=== PATIENT | female | born 1935 | race Caucasian/White ===

== ENCOUNTER 2023-01-28 18:18 | Emergency (ER) | payer OTHER ==
[~2023-01-28] VITALS: Ht 149.9 cm; Wt 64.1 kg
[~2023-01-28 18:18] MED LIST: AMLO5TAB16 PO; ATRNS BOTHNARES; ENAL-79 PO; MULT-1074 PO; PANT40TA54 PO; TRAM50TA2 PO; UBID1CAP54 PO
[2023-01-28 19:00] LABS: BASOPHILS % (AUTO) 0.4 % (0-1); EOSINOPHILS # (AUTO) 0.2 X10'3 (0-0.9); EOSINOPHILS % (AUTO) 1.6 % (0-6); HEMATOCRIT 38.6 % (35.0-45.0); HEMOGLOBIN 12.7 g/dl (12.0-16.0); LYMPHOCYTES # (AUTO) 1.1 X10'3 (1.1-4.8); LYMPHOCYTES % (AUTO) 11.4 % (21-51); MEAN CORPUSCULAR HEMOGLOBIN 29.6 PG (27.0-31.0); MEAN CORPUSCULAR HGB CONC 32.8 g/dL (33.0-36.5); MEAN CORPUSCULAR VOLUME 90.1 FL (78-98); MONOCYTES # (AUTO) 0.8 X10'3 (0-0.9); NEUTROPHILS # (AUTO) 7.7 X10'3 (1.8-7.7); NEUTROPHILS % (AUTO) 78.6 % (42-75); PLATELET COUNT 338 X10'3 (140-440); RED BLOOD COUNT 4.29 X10'6 (4.20-5.60); RED CELL DISTRIBUTION WIDTH 16.5 % (11.5-14.5); WHITE BLOOD COUNT 9.8 X10'3 (4.5-11.0)
[2023-01-28 19:07] LABS: PROTHROMBIN TIME 10.3 SECONDS (9.0-12.0)
[2023-01-28 19:13] LABS: ALANINE AMINOTRANSFERASE 16 U/L (12-78); ALBUMIN 3.5 G/DL (3.4-5.0); ALBUMIN/GLOBULIN RATIO 1.1 (1.1-1.5); ALKALINE PHOSPHATASE 114 IU/L (46-116); ANION GAP 7 (8-16); ASPARTATE AMINO TRANSFERASE 11 U/L (10-37); BILIRUBIN,TOTAL 0.2 MG/DL (0.1-1.0); BLOOD UREA NITROGEN 16 MG/DL (7-18); BUN/CREATININE RATIO 24.6 (10.0-20.0); CALCIUM 9.4 MG/DL (8.5-10.1); CHLORIDE 106 MMOL/L (99-107); CREATININE 0.65 MG/DL (0.40-0.90); GLUCOSE 109 MG/DL (70-104); POTASSIUM 4.2 MMOL/L (3.5-5.1); SODIUM 143 MMOL/L (135-145); TOTAL CARBON DIOXIDE 30.3 MMOL/L (24-32); TOTAL PROTEIN 6.8 G/DL (6.4-8.2); eCRCL 43 ML/MIN; eGFR 87 ML/MIN
[2023-01-28 19:21] LABS: LIPASE 57 U/L (16-77); PRO BRAIN NATRIURETIC PEPTIDE 147 PG/ML (0-450)
[2023-01-28 23:40] LABS: OCCULT BLOOD STOOL POSITIVE (Neg)
[2023-01-29 00:03] LABS: HEMATOCRIT 38.7 % (35.0-45.0); HEMOGLOBIN 12.7 g/dl (12.0-16.0); MEAN CORPUSCULAR HEMOGLOBIN 29.6 PG (27.0-31.0); MEAN CORPUSCULAR HGB CONC 32.8 g/dL (33.0-36.5); MEAN CORPUSCULAR VOLUME 90.2 FL (78-98); PLATELET COUNT 325 X10'3 (140-440); RED CELL DISTRIBUTION WIDTH 16.2 % (11.5-14.5); WHITE BLOOD COUNT 10.7 X10'3 (4.5-11.0)
[2023-01-29] MEDS ORDERED: ESOM40CA PO (00:06)
[2023-01-29 01:05] VITALS: BP 146/77; PULSE 95; RESP 16; TEMP 98; O2SAT 98
[2023-01-29] MEDS ORDERED: pantoprazole 40mg Tablet.DR PO ONE (01:40)
--- NOTE | 2023-01-29 07:44 | NUR ---
PT'S NEIGHBOR; ISSAC OLMOS, WAS CALLED FOR TRANSPORTATION HOME AND WAS TOLD SHE IS ON HER WAY
== END 2023-01-29 08:00 | disposition home or self-care (01) ==
LOC: ER 18:19
DX: K62.5 Hemorrhage of anus and rectum (principal); I11.0 Hypertensive heart disease with heart failure; K59.00 Constipation, unspecified; Z79.899 Other long term (current) drug therapy
CPT/HCPCS: 36415; 74018; 80053; 82272; 83690; 83880; 84484; 85025; 85027; 85610; 93005; 99285